=== PATIENT | male | born 1960 | race African-American/Black ===

== ENCOUNTER 2017-12-17 09:10 | Emergency (ER) | payer OTHER, SELFPAY ==
[2017-12-17] MEDS ORDERED: Acetaminophen 500 MG TAB ONE (09:34)
[2017-12-17 10:02] LABS: Eosinophils 2 % (0-10); Hemoglobin 12.3 g/dL (14.0-18.0); Lymphocytes 26 % (21-51); MDiff Complete? YES; Mean Corpuscular HGB CONC 30.6 g/dL (32.0-36.0); Mean Corpuscular Hemoglobin 25.7 pg (27.0-31.0); Mean Corpuscular Volume 83.8 fL (78.0-98.0); Monocytes 5 % (0-10); Neutrophil 67 % (42-75); PLT Morphology Comment Appears Adequate; Platelet Count 228 thou/uL (130-400); RBC Distribution Width 13.7 % (11.5-14.5); Red Blood Cell (RBC) Count 4.78 mill/uL (4.70-6.10); White Blood Cell (WBC) Count 4.6 thou/uL (4.8-10.8)
[2017-12-17 10:08] LABS: CKMB 2.5 ng/mL (0-6.6); Troponin I 0.015 ng/mL (< 0.028)
[2017-12-17 10:11] LABS: ALT (SGPT) 26 U/L (8-55); AST (SGOT) 19 U/L (5-34); Albumin 3.7 g/dL (3.5-5.0); Alkaline Phosphatase 64 U/L (40-150); Anion Gap 14 mmol/L (10-20); BUN (Urea Nitrogen) 13 mg/dL (8.4-25.7); Bilirubin, Total 0.3 mg/dL (0.2-1.2); Calc. Creatinine Clearance 0 mL/min (70-130); Carbon Dioxide 24 mmol/L (22-29); Chloride 105 mmol/L (98-107); Estimated GFR-MDRD Greater than 90; Globulin 3.4 g/dL (2.4-3.5); Glucose 107 mg/dL (70-105); Potassium 4.4 mmol/L (3.5-5.1); Protein, Total 7.1 g/dL (6.0-8.3); Sodium 139 mmol/L (136-145)
== END 2017-12-17 10:42 | disposition home or self-care (01) ==
LOC: NAV ERS 09:10
DX: R60.0 Localized edema (principal); Z87.891 Personal history of nicotine dependence; Z79.899 Other long term (current) drug therapy
CPT/HCPCS: 80053; 82553; 83880; 84484; 85025; 85379; 99283

== ENCOUNTER 2018-04-08 10:19 | Emergency (ER) | payer OTHER ==
[2018-04-08 11:37] LABS: Anion Gap 13 mmol/L (10-20); BUN (Urea Nitrogen) 16 mg/dL (8.4-25.7); Calc. Creatinine Clearance 0 mL/min (70-130); Calcium 9.9 mg/dL (7.8-10.44); Carbon Dioxide 25 mmol/L (22-29); Chloride 104 mmol/L (98-107); Estimated GFR-MDRD Greater than 90; Glucose 87 mg/dL (70-105); Potassium 4.1 mmol/L (3.5-5.1); Sodium 138 mmol/L (136-145)
[2018-04-08] MEDS ORDERED: Furosemide 40 MG TAB ONE (11:41)
[2018-04-08 11:59] LABS: Hemoglobin 12.8 g/dL (14.0-18.0); Mean Corpuscular HGB CONC 30.3 g/dL (32.0-36.0); Mean Corpuscular Hemoglobin 24.8 pg (27.0-31.0); Mean Corpuscular Volume 81.1 fL (78.0-98.0); RBC Distribution Width 13.5 % (11.5-14.5); Red Blood Cell (RBC) Count 5.14 mill/uL (4.70-6.10); White Blood Cell (WBC) Count 6.2 thou/uL (4.8-10.8)
[2018-04-08 12:00] LABS: #Basophils 0.1 thou/uL (0.0-0.2); #Eosinphils 0.1 thou/uL (0.0-0.7); #Lymphocytes 1.6 thou/uL (1.20-3.40); #Monocytes 0.5 thou/uL (0.11-0.59); #Neutrophils 3.9 thou/uL (1.40-6.50); %Basophils 1.6 % (0.0-1.0); %Eosinophils 2.1 % (0.0-10.0); %Lymphocytes 25.2 % (21.0-51.0); %Monocytes 7.4 % (0.0-10.0); %Neutrophils 63.3 % (42.0-75.0); Platelet Count 240 thou/uL (130-400)
== END 2018-04-08 11:46 | disposition home or self-care (01) ==
LOC: NAV ERS 10:19
DX: R60.0 Localized edema (principal); Z87.891 Personal history of nicotine dependence; Z79.899 Other long term (current) drug therapy
CPT/HCPCS: 80048; 85025; 99283